=== PATIENT | male | born 2000 | race Caucasian/White ===

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

== ENCOUNTER 2025-06-06 12:06 | Emergency (ER) | payer OTHER ==
[~2025-06-06] VITALS: Ht 167.6 cm; Wt 59.0 kg
[2025-06-06 12:51] LABS: BASO # 0.1 10*3/uL (0.0-0.1); BASO % 0.7 % (0.0-1.0); EOS # 0.2 10*3/uL (0.0-0.4); EOS % 2.4 % (1.0-4.0); MEAN CELL VOLUME 97.7 fl (80.0-94.0); MEAN CORPUSCULAR HGB 31.4 pg (27.0-31.0); MEAN PLATELET VOLUME 10.3 fl (9.6-12.3); MONO # 0.7 10*3/uL (0.1-1.0); MONO % 7.3 % (3.0-9.0); NEUT # 6.7 10*3/uL (2.3-7.9); NEUT % 68.9 % (47.0-73.0); NUCLEATED RED BLOOD CELL 0.0 % (0.0-0.0); NUCLEATED RED BLOOD CELL 0.0 10*3/uL (0.0-0.0); PLATELET COUNT AUTOMATED 354 10*3/uL (130-400); RED CELL DISTRI WIDTH 12.1 % (0-14.5)
[2025-06-06 13:02] LABS: ACT PARTIAL THROMBO TIME 28.5 SECONDS (20.0-32.1)
[2025-06-06 13:15] LABS: BUN 16 mg/dl (9-23); SGPT/ALT 43 U/L (5-49)
[2025-06-06] MEDS ORDERED: Albuterol Sulf/Ipratropium 3 ML VIAL NEB ONE (13:45)
[2025-06-06] MEDS ORDERED: VENT7GM INH (14:20)
== END 2025-06-06 14:23 | disposition home or self-care (01) ==
LOC: ED 12:06
PROVIDERS: Internal Medicine
DX: R07.89 Other chest pain (principal); R06.02 Shortness of breath; R63.4 Abnormal weight loss; Z88.5 Allergy status to narcotic agent

== ENCOUNTER 2025-07-07 15:28 | Inpatient (IN) | payer OTHER ==
[~2025-07-07] VITALS: Ht 167.6 cm; Wt 49.9 kg
[~2025-07-07 15:28] MED LIST: VENT7GM INH
[2025-07-07 15:31] VITALS: BP 132/77
[2025-07-07] MEDS ORDERED: ACETAMINOPHEN 100 ML IV ONE (15:35)
[2025-07-07] MEDS ORDERED: Albuterol Sulf/Ipratropium 3 ML VIAL NEB ONE (15:35)
[2025-07-07] MEDS ORDERED: SODIUM CHLORIDE 0.9% 1,000 ML IV ONE (15:35)
[2025-07-07 16:10] VITALS: BP 123/72
[2025-07-07 16:21] LABS: MEAN CELL VOLUME 97.0 fl (80.0-94.0); MEAN CORPUSCULAR HGB 29.6 pg (27.0-31.0); MEAN PLATELET VOLUME 10.8 fl (9.6-12.3); NUCLEATED RED BLOOD CELL 0.0 % (0.0-0.0); NUCLEATED RED BLOOD CELL 0.0 10*3/uL (0.0-0.0); PLATELET COUNT AUTOMATED 436 10*3/uL (130-400); RED CELL DISTRI WIDTH 13.2 % (0-14.5)
[2025-07-07 16:24] LABS: MANUAL DIFF REFLEX YES
[2025-07-07] MEDS ORDERED: AZITHROMYCIN 250 ML IV ONE (16:25)
[2025-07-07 16:43] LABS: BUN 13 mg/dl (9-23); PLATELET SUFFICIENCY HIGH (NORMAL)
[2025-07-07] MEDS ORDERED: Ondansetron Hydrochloride 4 MG/2 ML VIAL IV PRN (17:25)
[2025-07-07] MEDS ORDERED: BISACODYL 5 MG TAB PO PRN (17:25)
[2025-07-07] MEDS ORDERED: TEMAZEPAM 15 MG CAP PO PRN (17:25)
[2025-07-07] MEDS ORDERED: BISACODYL 10 MG SUPP R PRN (17:25)
[2025-07-07] MEDS ORDERED: ACETAMINOPHEN 325 MG TAB PO PRN (17:25)
[2025-07-07] MEDS ORDERED: ACETAMINOPHEN 650 MG SUPP R PRN (17:25)
[2025-07-07] MEDS ORDERED: IOHEXOL 350 MG/ML 100 ML VIAL IV ONE (18:00)
[2025-07-07] MEDS ORDERED: Piperacillin Sodium/Tazobact 4.5 GM in SODIUM CHLORIDE 0.9% 100 ML IV SCH ×2 (18:00→18:30)
[2025-07-07] MEDS ORDERED: SODIUM CHLORIDE 0.9% 100 ML BAG IV ONE (18:00)
[2025-07-07] MEDS ORDERED: SODIUM CHLORIDE NEB SCH (18:00)
[2025-07-07] MEDS ORDERED: TRIKAFTA 100/51 EACH PO (18:01)
[2025-07-07] MEDS ORDERED: CREON DR 36,001 EAC1 PO (18:02)
[2025-07-07] MEDS ORDERED: SODIUM CHLORIDE 0.9% 1,000 ML IV SCH (18:25)
[2025-07-07 18:50] LABS: BILIRUBIN Negative (Negative); BLOOD 1+ (Negative); CLARITY Clear (Clear); COLOR Yellow (Yellow); KETONE Negative (Negative); LEUKO ESTERASE Negative (Negative); NITRITE Negative (Negative); PH 6.0 (4.5-8.0); SPECIFIC GRAVITY 1.025 (1.001-1.030); UROBILINOGEN 1.0 E.U./dl (0.0-1.0)
[2025-07-07 18:56] LABS: BACTERIA TRACE; HYALINE CAST 0-2; RBC 21-30 rbc/hpf (0-2); WBC 0-2 wbc/hpf (0-5)
[2025-07-07 18:57] LABS: URINE AMPHETAMINES Positive (1000ng/ml); URINE BARBITURATES Negative (200ng/ml); URINE BENZODIAZEPINES Negative (200ng/ml); URINE CANNABINOIDS (THC) Positive (50ng/ml); URINE COCAINE Negative (300ng/ml); URINE METHADONE Negative (300ng/ml); URINE OPIATES Negative (300ng/ml); URINE PHENCYCLIDINE Negative (25ng/ml)
[2025-07-07] MEDS ORDERED: Levalbuterol Hydrochloride 1.25 MG VIAL NEB SCH (19:15)
[2025-07-07 20:00] VITALS: BP 130/73
[2025-07-07] MEDS ORDERED: LEVOFLOXACIN 150 ML IV SCH (20:00)
[2025-07-07] MEDS ORDERED: LINEZOLID 300 ML IV SCH (22:00)
[2025-07-07] MEDS ORDERED: IVACAFTOR PO SCH (22:00)
[2025-07-07] MEDS ORDERED: TEZACAFTOR PO SCH (22:00)
[2025-07-07] MEDS ORDERED: ELEXACAFTOR PO SCH (22:00)
[2025-07-07] MEDS ORDERED: METHOCARBAMOL 750 MG TAB PO PRN (22:10)
[2025-07-07] MEDS ORDERED: hydrOXYzine 50 MG CAP PO PRN (22:10)
[2025-07-07] MEDS ORDERED: Dicyclomine Hydrochloride 20 MG TAB PO PRN (22:10)
[2025-07-07] MEDS ORDERED: LORazepam 1 MG TAB PO PRN (22:10)
[2025-07-08] VITALS (7 sets, daily range): BP systolic 105–139; BP diastolic 54–84
[2025-07-08] MEDS ORDERED: AMYLASE/LIPASE/PROTEASE 12,000 UNITS CAP PO SCH (07:00)
[2025-07-08 09:25] LABS: MANUAL DIFF REFLEX YES; MEAN CORPUSCULAR HGB 29.4 pg (27.0-31.0); MEAN PLATELET VOLUME 10.2 fl (9.6-12.3); NUCLEATED RED BLOOD CELL 0.0 % (0.0-0.0); NUCLEATED RED BLOOD CELL 0.0 10*3/uL (0.0-0.0); PLATELET COUNT AUTOMATED 371 10*3/uL (130-400); RED CELL DISTRI WIDTH 13.3 % (0-14.5)
[2025-07-08 09:26] LABS: MEAN CELL VOLUME 93.2 fl (80.0-94.0)
[2025-07-08 09:42] LABS: DOHLE BODIES FEW; PLATELET SUFFICIENCY NORMAL (NORMAL); VACUOLATION OF NEUTROPHILS SLIGHT
[2025-07-08 09:46] LABS: BUN 10 mg/dl (9-23); FREE T4 0.89 ng/dl (0.89-1.76); SGPT/ALT 19 U/L (5-49)
[2025-07-08 09:48] LABS: LDL CHOLESTEROL 18 mg/dL (9-159)
[2025-07-08 10:26] LABS: VITAMIN D, 25-HYDROXY 44.4 ng/mL (30-100)
[2025-07-09 08:00] VITALS: BP 106/56
[2025-07-09 08:37] LABS: BUN 7 mg/dl (9-23)
[2025-07-09 10:37] LABS: MEAN CELL VOLUME 95.4 fl (80.0-94.0); MEAN CORPUSCULAR HGB 29.4 pg (27.0-31.0); MEAN PLATELET VOLUME 10.5 fl (9.6-12.3); NUCLEATED RED BLOOD CELL 0.0 % (0.0-0.0); NUCLEATED RED BLOOD CELL 0.0 10*3/uL (0.0-0.0); PLATELET COUNT AUTOMATED 357 10*3/uL (130-400); RED CELL DISTRI WIDTH 13.4 % (0-14.5)
[2025-07-09 10:39] LABS: MANUAL DIFF REFLEX YES
[2025-07-09 10:56] LABS: BASOPHILS 1 % (0-1)
[2025-07-09 10:57] LABS: PLATELET SUFFICIENCY NORMAL (NORMAL); VACUOLATION OF NEUTROPHILS SLIGHT
[2025-07-09 12:00] VITALS: BP 126/73
[2025-07-09 16:00] VITALS: BP 129/77
[2025-07-09 20:00] VITALS: BP 130/77
[2025-07-10] VITALS: BP 102/53
[2025-07-10 04:00] VITALS: BP 117/70
[2025-07-10 05:56] LABS: BASO # 0.1 10*3/uL (0.0-0.1); BASO % 0.5 % (0.0-1.0); EOS # 0.9 10*3/uL (0.0-0.4); EOS % 5.8 % (1.0-4.0); MEAN CELL VOLUME 97.2 fl (80.0-94.0); MEAN CORPUSCULAR HGB 29.5 pg (27.0-31.0); MEAN PLATELET VOLUME 10.9 fl (9.6-12.3); MONO # 1.5 10*3/uL (0.1-1.0); MONO % 9.9 % (3.0-9.0); NEUT # 9.2 10*3/uL (2.3-7.9); NEUT % 61.5 % (47.0-73.0); NUCLEATED RED BLOOD CELL 0.0 % (0.0-0.0); NUCLEATED RED BLOOD CELL 0.0 10*3/uL (0.0-0.0); PLATELET COUNT AUTOMATED 365 10*3/uL (130-400); RED CELL DISTRI WIDTH 13.7 % (0-14.5)
[2025-07-10 06:08] LABS: BUN < 5 mg/dl (9-23)
[2025-07-10 08:00] VITALS: BP 118/61
[2025-07-10 12:00] VITALS: BP 122/69
[2025-07-10] MEDS ORDERED: METHOCARBAMOL 750 MG TAB PO SCH (14:00)
[2025-07-10 16:00] VITALS: BP 115/63
[2025-07-10] MEDS ORDERED: AMYLASE/LIPASE/PROTEASE 12,000 UNITS CAP PO SCH (17:00)
[2025-07-10 20:00] VITALS: BP 117/87
[2025-07-11] VITALS: BP 124/80
[2025-07-11 06:03] LABS: BUN 7 mg/dl (9-23)
[2025-07-11 06:10] LABS: MEAN CELL VOLUME 94.5 fl (80.0-94.0); MEAN CORPUSCULAR HGB 29.4 pg (27.0-31.0); MEAN PLATELET VOLUME 11.2 fl (9.6-12.3); NUCLEATED RED BLOOD CELL 0.0 % (0.0-0.0); NUCLEATED RED BLOOD CELL 0.0 10*3/uL (0.0-0.0); PLATELET COUNT AUTOMATED 337 10*3/uL (130-400); RED CELL DISTRI WIDTH 13.9 % (0-14.5)
[2025-07-11 06:12] LABS: MANUAL DIFF REFLEX YES
[2025-07-11 07:18] LABS: PLATELET SUFFICIENCY NORMAL (NORMAL); VACUOLATION OF NEUTROPHILS SLIGHT
[2025-07-11 08:00] VITALS: BP 130/81
[2025-07-11 12:00] VITALS: BP 110/58
[2025-07-11 16:00] VITALS: BP 131/80
[2025-07-11] MEDS ORDERED: PROTEASE PO SCH (17:00)
[2025-07-11] MEDS ORDERED: LIPASE PO SCH (17:00)
[2025-07-11] MEDS ORDERED: AMYLASE PO SCH (17:00)
[2025-07-11] MEDS ORDERED: Piperacillin Sodium/Tazobact 4.5 GM in SODIUM CHLORIDE 0.9% 100 ML IV SCH (18:00)
[2025-07-11 20:00] VITALS: BP 128/78
[2025-07-12] VITALS: BP 116/71
[2025-07-12 06:03] LABS: BUN 8 mg/dl (9-23)
[2025-07-12 06:14] LABS: MEAN CELL VOLUME 95.2 fl (80.0-94.0); MEAN CORPUSCULAR HGB 28.8 pg (27.0-31.0); MEAN PLATELET VOLUME 11.3 fl (9.6-12.3); NUCLEATED RED BLOOD CELL 0.0 % (0.0-0.0); NUCLEATED RED BLOOD CELL 0.0 10*3/uL (0.0-0.0); PLATELET COUNT AUTOMATED 339 10*3/uL (130-400); RED CELL DISTRI WIDTH 13.7 % (0-14.5)
[2025-07-12 06:20] LABS: MANUAL DIFF REFLEX YES
[2025-07-12 07:24] LABS: PLATELET SUFFICIENCY NORMAL (NORMAL)
[2025-07-12 08:00] VITALS: BP 144/88
[2025-07-12 12:00] VITALS: BP 123/76
[2025-07-12 16:00] VITALS: BP 117/74
[2025-07-12 20:00] VITALS: BP 112/78
[2025-07-13] VITALS: BP 110/76
[2025-07-13 04:32] LABS: MEAN CELL VOLUME 94.1 fl (80.0-94.0); MEAN CORPUSCULAR HGB 29.4 pg (27.0-31.0); MEAN PLATELET VOLUME 10.5 fl (9.6-12.3); NUCLEATED RED BLOOD CELL 0.0 % (0.0-0.0); NUCLEATED RED BLOOD CELL 0.0 10*3/uL (0.0-0.0); PLATELET COUNT AUTOMATED 358 10*3/uL (130-400); RED CELL DISTRI WIDTH 13.8 % (0-14.5)
[2025-07-13 04:34] LABS: MANUAL DIFF REFLEX YES
[2025-07-13 04:51] LABS: BUN 9 mg/dl (9-23)
[2025-07-13 05:09] LABS: PLATELET SUFFICIENCY NORMAL (NORMAL)
[2025-07-13 08:00] VITALS: BP 108/72
[2025-07-13 12:00] VITALS: BP 117/68
[2025-07-13] MEDS ORDERED: Levalbuterol Hydrochloride 1.25 MG VIAL NEB PRN (12:10)
[2025-07-13 16:00] VITALS: BP 116/65; BP 125/72
[2025-07-13 20:00] VITALS: BP 116/65
[2025-07-14] VITALS: BP 125/80
[2025-07-14 05:25] LABS: BUN 10 mg/dl (9-23)
[2025-07-14 06:01] LABS: MEAN CELL VOLUME 94.1 fl (80.0-94.0); MEAN CORPUSCULAR HGB 29.1 pg (27.0-31.0); MEAN PLATELET VOLUME 10.8 fl (9.6-12.3); NUCLEATED RED BLOOD CELL 0.0 % (0.0-0.0); NUCLEATED RED BLOOD CELL 0.0 10*3/uL (0.0-0.0); PLATELET COUNT AUTOMATED 415 10*3/uL (130-400); RED CELL DISTRI WIDTH 13.7 % (0-14.5)
[2025-07-14 06:13] LABS: MANUAL DIFF REFLEX YES
[2025-07-14 08:00] VITALS: BP 121/79
[2025-07-14 08:05] LABS: BASOPHILS 1 % (0-1)
[2025-07-14 08:06] LABS: PLATELET SUFFICIENCY HIGH (NORMAL)
[2025-07-14 12:00] VITALS: BP 137/73
[2025-07-14 16:00] VITALS: BP 131/81
[2025-07-14 20:00] VITALS: BP 118/80
[2025-07-14] MEDS ORDERED: TEMAZEPAM 15 MG CAP PO PRN (22:00)
[2025-07-15] VITALS: BP 122/38
[2025-07-15 07:40] LABS: MEAN CELL VOLUME 94.7 fl (80.0-94.0); MEAN CORPUSCULAR HGB 28.8 pg (27.0-31.0); MEAN PLATELET VOLUME 9.9 fl (9.6-12.3); NUCLEATED RED BLOOD CELL 0.0 % (0.0-0.0); NUCLEATED RED BLOOD CELL 0.0 10*3/uL (0.0-0.0); PLATELET COUNT AUTOMATED 405 10*3/uL (130-400); RED CELL DISTRI WIDTH 13.8 % (0-14.5)
[2025-07-15 07:43] LABS: MANUAL DIFF REFLEX YES
[2025-07-15 07:59] LABS: BUN 10 mg/dl (9-23)
[2025-07-15 08:00] VITALS: BP 126/68
[2025-07-15 08:43] LABS: PLATELET SUFFICIENCY HIGH (NORMAL)
[2025-07-15 12:00] VITALS: BP 133/80
[2025-07-15 16:00] VITALS: BP 112/61
[2025-07-15 20:00] VITALS: BP 125/66
[2025-07-16] VITALS: BP 129/83
[2025-07-16 06:20] LABS: BASO # 0.1 10*3/uL (0.0-0.1); BASO % 0.7 % (0.0-1.0); EOS # 0.7 10*3/uL (0.0-0.4); EOS % 4.5 % (1.0-4.0); MEAN CELL VOLUME 93.2 fl (80.0-94.0); MEAN CORPUSCULAR HGB 29.5 pg (27.0-31.0); MEAN PLATELET VOLUME 10.0 fl (9.6-12.3); MONO # 0.8 10*3/uL (0.1-1.0); MONO % 5.6 % (3.0-9.0); NEUT # 8.8 10*3/uL (2.3-7.9); NEUT % 60.4 % (47.0-73.0); NUCLEATED RED BLOOD CELL 0.0 % (0.0-0.0); NUCLEATED RED BLOOD CELL 0.0 10*3/uL (0.0-0.0); PLATELET COUNT AUTOMATED 391 10*3/uL (130-400); RED CELL DISTRI WIDTH 14.0 % (0-14.5)
[2025-07-16 06:21] LABS: BUN 11 mg/dl (9-23)
[2025-07-16 08:00] VITALS: BP 130/73
[2025-07-16 12:00] VITALS: BP 149/87
[2025-07-16 16:00] VITALS: BP 135/79
[2025-07-16 20:00] VITALS: BP 122/73
[2025-07-16 22:36] VITALS: BP 106/67
[2025-07-16 22:45] LABS: BUN 10 mg/dl (9-23)
[2025-07-17] VITALS: BP 118/74
[2025-07-17 06:39] LABS: BASO # 0.1 10*3/uL (0.0-0.1); BASO % 0.7 % (0.0-1.0); EOS # 0.5 10*3/uL (0.0-0.4); EOS % 3.6 % (1.0-4.0); MEAN CELL VOLUME 95.7 fl (80.0-94.0); MEAN CORPUSCULAR HGB 29.0 pg (27.0-31.0); MEAN PLATELET VOLUME 9.5 fl (9.6-12.3); MONO # 0.6 10*3/uL (0.1-1.0); MONO % 5.0 % (3.0-9.0); NEUT # 8.0 10*3/uL (2.3-7.9); NEUT % 62.9 % (47.0-73.0); NUCLEATED RED BLOOD CELL 0.0 % (0.0-0.0); NUCLEATED RED BLOOD CELL 0.0 10*3/uL (0.0-0.0); PLATELET COUNT AUTOMATED 416 10*3/uL (130-400); RED CELL DISTRI WIDTH 14.1 % (0-14.5)
[2025-07-17 08:00] VITALS: BP 128/77
[2025-07-17] MEDS ORDERED: ZYVOX600 MG PO (11:06)
[2025-07-17] MEDS ORDERED: ZOSYN 4.54.5 GM/100 IV (11:06)
[2025-07-17 12:00] VITALS: BP 128/91
[2025-07-17 16:00] VITALS: BP 139/121
[2025-07-18] VITALS: BP 136/87
[2025-07-18 06:47] LABS: BASO # 0.1 10*3/uL (0.0-0.1); BASO % 0.5 % (0.0-1.0); EOS # 0.4 10*3/uL (0.0-0.4); EOS % 3.0 % (1.0-4.0); MEAN CELL VOLUME 92.9 fl (80.0-94.0); MEAN CORPUSCULAR HGB 29.1 pg (27.0-31.0); MEAN PLATELET VOLUME 9.0 fl (9.6-12.3); MONO # 0.7 10*3/uL (0.1-1.0); MONO % 6.2 % (3.0-9.0); NEUT # 7.4 10*3/uL (2.3-7.9); NEUT % 64.3 % (47.0-73.0); NUCLEATED RED BLOOD CELL 0.0 % (0.0-0.0); NUCLEATED RED BLOOD CELL 0.0 10*3/uL (0.0-0.0); PLATELET COUNT AUTOMATED 432 10*3/uL (130-400); RED CELL DISTRI WIDTH 14.3 % (0-14.5)
[2025-07-18 07:20] LABS: BUN 10 mg/dl (9-23)
[2025-07-18 08:00] VITALS: BP 116/76
[2025-07-18] MEDS ORDERED: LEVOFLOXACIN750 M2 PO ×2 (09:29→10:46)
[2025-07-18] MEDS ORDERED: CREON DR 36,001 EAC1 PO ×2 (09:35→10:46)
[2025-07-18] MEDS ORDERED: ZYVOX600 MG PO (10:46)
[2025-07-18] MEDS ORDERED: VITAMIN B-650 M1 PO (15:45)
== END 2025-07-18 11:00 | disposition home or self-care (01) | DRG 720 ==
LOC: ED 15:28 → ICCU 16:41 → EDHOLD 16:41 → ICCU 16:41 → 5E 16:41 → EDHOLD 17:32 → ICCU 18:48 → 5E 07-14 07:57
PROVIDERS: Emergency Medicine; Student in an Organized Health Care Education/Training Program; ADMIT Internal Medicine; ATTEND Internal Medicine
PROC: 05H933Z Insertion of Infusion Device into Right Brachial Vein, Percutaneous Approach (ICD-10-PCS; principal; 2025-07-16)
PROC: B54MZZA Ultrasonography of Right Upper Extremity Veins, Guidance (ICD-10-PCS; 2025-07-16)
DX: A41.9 Sepsis, unspecified organism (principal); I26.99 Other pulmonary embolism without acute cor pulmonale; J96.01 Acute respiratory failure with hypoxia; E43 Unspecified severe protein-calorie malnutrition; E87.20 Acidosis, unspecified; E84.9 Cystic fibrosis, unspecified; J69.0 Pneumonitis due to inhalation of food and vomit; D75.839 Thrombocytosis, unspecified; K59.00 Constipation, unspecified; R65.20 Severe sepsis without septic shock; Z88.8 Allergy status to other drugs, medicaments and biological substances; Z68.1 Body mass index [BMI] 19.9 or less, adult